=== PATIENT | female | born 1985 | race Two or more races ===

== ENCOUNTER 2021-01-04 19:46 | Emergency (ER) | payer MEDICAID, OTHER ==
[~2021-01-04] VITALS: Ht 132.1 cm; Wt 43.1 kg
[2021-01-04 19:51] VITALS: BP 117/79
[2021-01-04] MEDS ORDERED: diphenhdrAMINE HCL 25 MG CAP PO ONE (20:45)
== END 2021-01-05 00:29 | disposition left against medical advice (07) ==
LOC: ER 19:46
DX: R21 Rash and other nonspecific skin eruption (principal); Z53.21 Procedure and treatment not carried out due to patient leaving prior to being seen by health care provider